=== PATIENT | female | born 1950 | race Caucasian/White ===

== ENCOUNTER 2017-10-08 05:02 | Observation (INO) ==
[2017-10-08] MEDS ORDERED: Naloxone 0.4 MG/ML INJ IVP PRN (12:43)
--- NOTE | 2017-10-08 12:43 | Internal Med History&Physical ---
Date of Encounter: 10/08/17 Time of Encounter: 12:39 Internal Medicine - H&P: HPI Admitted From: Home Plans for Post Hospital Care: Home History of present illness: Ms. Young is a 67 year old female with history of hypertension and chronic pancreatitis got transferred from [place] ER after finding new onset A. fib with RVR. Patient has intermittent palpitation for several years earlier it was once or twice in a year then progressed to monthly basis but since last month she has been getting palpitation more frequently. Last night she woke up with palpitation around 3:00 a.m. and felt very uneasy therefore went to [place] ER where A. fib with RVR was diagnosed and transfer to [facility]. Cardizem drip was started. Patient denies associated chest pain, headache, dizziness, nausea, vomiting. She also denies fever, chills, abdominal pain, urinary or bowel complaint. Past Med Surg Social Fam HX - Past Medical History Medical history: other - Social History Smoking Status: Never smoker Smokeless Tobacco Status: No Alcohol use: none Drug use: none Internal Medicine - H&P: Meds Olmesartan Medoxomil [Benicar] 40 mg PO DAILY 06/18/17 [History] cloNIDine HCl [CloNIDine HCl] 0.1 mg PO BID 06/18/17 [History] Docusate [Colace] 100 - 200 mg PO BID 10/08/17 [History] Ibuprofen [Motrin Ib] 200 mg PO DAILY PRN 10/08/17 [History] Psyllium Husk [Fiber] 5 cap PO DAILY 10/08/17 [History] amLODIPine [Norvasc] 5 mg PO DAILY 10/08/17 [History] 3 Allergy/AdvReac Type Severity Reaction Status Date / Time acetaminophen [From Percocet] Allergy Rash Verified 10/08/17 09:21 hydrocodone [From Vicodin] Allergy Hives Verified 10/08/17 09:21 Hydromorphone [From Dilaudid] Allergy Hives Verified 10/08/17 09:21 morphine Allergy Rash Verified 10/08/17 09:21 Oxycodone [From Percocet] Allergy Rash Verified 10/08/17 09:21 All Systems PM: A 10-system review of systems was performed and is negative for pertinent findings except as documented above in the HPI. - Constitutional Vitals: Temp Pulse Resp BP Pulse Ox 97.6 F 113 16 135/95 96 10/08/17 12:13 10/08/17 12:13 10/08/17 12:13 10/08/17 12:13 10/08/17 12:13 Exam: General appearance: No acute distress, A&O X 3 Head exam: Atraumatic Eye exam: EOMI, PERRLA ENT exam: Moist oral mucosa Neck nontender, supple Respiratory exam: Clear to auscultation bilaterally Cardiovascular exam: Irregular rhythm. Tachycardic, no systolic murmur Abdominal exam: Soft, nontender, nondistended, positive bowel sounds Extremities exam: No calf tenderness, no pedal edema Present: Skin-no rash, warm, dry, intact Neurological exam: Alert, awake, oriented 3, CN II-XII intact, no focal deficits. No facial droop. Normal speech. Motor 5 x 5 in all 4 extremities - Assessment and plan (1) Atrial fibrillation with rapid ventricular response Current Visit: No Status: Acute Assessment and plan: New onset. Patient is still tachycardic with A. fib but better controlled rate on Cardizem drip. Anticoagulation therapy was discussed with the patient. After discussing risk and benefit including bleeding patient decided for parenteral anticoagulation therapy while waiting for the coordinator of library services to discuss about oral anticoagulation treatment. Serial troponin, echocardiogram, telemetry bed, aspirin 324 mg 1 and then baby aspirin, fasting lipid profile. TSH, magnesium level also ordered. Consulted coordinator of library services. (2) Hypertension Current Visit: Yes Status: Chronic Assessment and plan: Continue home medicine except amlodipine as patient already on Cardizem drip. Close monitoring. Qualifiers: Hypertension type: essential hypertension Qualified Code(s): I10 - Essential (primary) hypertension (3) Chronic pancreatitis Current Visit: Yes Status: Chronic Assessment and plan: Stable. Continue monitor. Qualifiers: Pancreatitis type: biliary Qualified Code(s): K86.1 - Other chronic pancreatitis (4) DVT prophylaxis Current Visit: Yes Status: Acute Assessment and plan: Continue heparin drip - Time Spent With Patient Total time spent is greater than 50% in coordination of care (as documented) at patient's floor/unit and/or counseling patient: 25 - 35 minutes
[2017-10-08] MEDS ORDERED: Aspirin 325 MG TABLET PO ONE (12:52)
[2017-10-08] MEDS ORDERED: *HR* Heparin 5,000 UNIT/ML VIAL IVP ONE (12:59)
[2017-10-08] MEDS ORDERED: *HR* Heparin 5,000 UNIT/ML VIAL IVP PRN ×2 (12:59)
[2017-10-08] MEDS ORDERED: Heparin 25,000 UNIT/500 ML D5W 25,000 UNIT/500 ML BAG IVC SCH (13:00)
[2017-10-08 13:37] LABS: Hemoglobin 14.6 g/dL (11.5-15.4); Mean Corpuscular HGB Conc 34.8 g/dL (31.6-35.5); Mean Corpuscular Hemoglobin 30.6 pg (28.0-33.3); Mean Corpuscular Volume 88.1 fL (83.0-100.0); Mean Platelet Volume 10.6 fL (9.4-12.4); Platelet Count 220 K/mcL (140-400); Red Blood Count 4.77 M/mcL (3.82-4.97); Red Cell Distribution Width 12.7 % (11.5-14.5)
[2017-10-08 13:42] LABS: INR 0.9; Prothrombin Time 9.7 Seconds (9.4-12.1)
[2017-10-08 13:46] LABS: Activated Partial Thrombo Time 28.7 Seconds (26.0-36.0)
--- NOTE | 2017-10-08 13:56 | Cardiology Consult Note ---
Addendum entered and electronically signed by Alfonso Amanda CNP 10/08/17 14:21: Given pt's chronic pancreatitis, appreciate recommendations from primar team on if safe for chronic anticoagulation. On Home clonidine 0.1mg BID. Will decrease to daily in attempts to wean off and prevent rebound hypertension. Original Note: <Alfonso Amanda - Last Filed: 10/08/17 13:50> Date of Encounter: 10/08/17 Time of Encounter: 13:50 Assessment and Plan (1) Atrial fibrillation with rapid ventricular response Current Visit: Yes Status: Acute New diagnosis of A-Fib RVR, reports increasing intermittent palpitations in the past month, but woke up with acute onset of palpitations at 3AM prompting ED evaluation. Found to be in A-Fib RVR. K 3.4--replace. TSH 4.644. Check Mag. Troponin negative x 2. Currently on Cardizem gtt at 12.5mg/hr. Discussed with RN, increase to 15mg/hr. HR fluctuating up to 150s still. Echo once better rate controlled to evaluate structure and function. [id number] 3 (Age, HTN, Female). High CVA risk. Discussed Coumadin vs. NOACs. She is agreeable, but would like to think about the options. Heparin gtt for now. ST depressions on EKG, may be from RVR. Obtain echo and will determine if ischemic evaluation is warranted. Will further discuss with Dr. Hicks. Cardizem gtt was started overnight at [place] and still significantly tachycardic. Pt appears stable and is not in any distress at bedside. Continue to follow. (2) Hypertension Current Visit: Yes Status: Chronic BP stable. Will hold home Clonidine and decrease Losartan to allow BP room for AV mahogany blockers. Qualifiers: Hypertension type: essential hypertension Qualified Code(s): I10 - Essential (primary) hypertension Discussion w patient/family: The assessment and plan as outlined above was discussed with the patient and/or family members who expressed understanding and agreement. All questions were answered. Thank you for involving us in the care of your patient. Please call with any questions. I will discuss all the above with Dr. Hicks and make changes as necessary. History of Present Illness Consult date: 10/08/17 Requesting physician: Beata Rivera Consult reason: A-Fib RVR Chief complaint: palpitations History of present illness: Ms. Young is a 67 year old female with PMH of HTN and chronic pancreatitis, transferred from [place] ER for A-Fib RVR, new diagnosis. Patient reports occasional/intermittent palpitations for several years, typically once or twice a year. Palpitations became more frequent in the past month, then last night she woke up with palpitations around 3AM prompting ED evaluation where she was found to be in A-fib with RVR. Pt denies chest pain or dyspnea. Currently on cardizem gtt at 12.5mg/hr. Heparin gtt being started. No prior cardiac hx. HR at bedside fluctuating, up to 150s. Past Med Surg Social Fam HX - Past Medical History Medical history: hypertension, other (chronic pancreatitis) - Social History Smoking Status: Never smoker Smokeless Tobacco Status: No Alcohol use: none Drug use: none Medications and Allergies Olmesartan Medoxomil [Benicar] 40 mg PO DAILY 06/18/17 [History] cloNIDine HCl [CloNIDine HCl] 0.1 mg PO BID 06/18/17 [History] Docusate [Colace] 100 - 200 mg PO BID 10/08/17 [History] Ibuprofen [Motrin Ib] 200 mg PO DAILY PRN 10/08/17 [History] Psyllium Husk [Fiber] 5 cap PO DAILY 10/08/17 [History] amLODIPine [Norvasc] 5 mg PO DAILY 10/08/17 [History] 3 Allergy/AdvReac Type Severity Reaction Status Date / Time acetaminophen [From Percocet] Allergy Rash Verified 10/08/17 09:21 hydrocodone [From Vicodin] Allergy Hives Verified 10/08/17 09:21 Hydromorphone [From Dilaudid] Allergy Hives Verified 10/08/17 09:21 morphine Allergy Rash Verified 10/08/17 09:21 Oxycodone [From Percocet] Allergy Rash Verified 10/08/17 09:21 All Systems Review: The remainder of the systems were reviewed and are negative - Cardiovascular Cardiovascular: as per HPI, palpitations, rapid heart rate Physical Examination Vital Signs, Last 4 Hours Temp Pulse Resp BP Pulse Ox 10/08/17 12:13 97.6 F 113 16 135/95 96 Vital Signs Temp Pulse Resp BP Pulse Ox 10/08/17 12:13 97.6 F 113 16 135/95 96 10/08/17 07:25 97.8 F 88 16 117/88 98 Intake and Output 10/07/17 10/08/17 10/08/17 23:59 07:59 15:59 Other: Weight 83.461 kg Patient Weight 10/08/17 23:59 Weight 83.461 kg General: Conversant, No Apparent Distress HEENT: Atraumatic, Normocephaly, Mucus Membranes Moist Neck: No JVD, Normal carotid pulses Cardiac: Other (irregularly irregular) Lungs: Normal Breath Sounds, No Wheeze, Rales, Rhonchi Neuro: Alert and responsive, No focal deficits noted Abdomen: Soft, Non-Tender Skin: No rashes noted on visualized skin Musculoskeletal: No Chest Wall Tenderness Extremities: No Clubbing, No Cyanosis, No Edema, Normal Pulses Results 10/08/17 13:07 Lab Results 10/08/17 10/08/17 10/08/17 13:07 13:07 13:07 WBC 7.1 Hgb 14.6 Hct 42.0 Plt Count 220 INR 0.9 APTT 28.7 Troponin I < 0.03 Short CBC 10/08/17 Range/Units 13:07 WBC 7.1 (4.3-11.1) K/mcL Hgb 14.6 (11.5-15.4) g/dL Hct 42.0 (35.3-44.9) % Plt Count 220 (140-400) K/mcL Cardiac Enzymes 10/08/17 Range/Units 13:07 Troponin I < 0.03 (< 0.04) ng/mL Active Medications Aspirin (Aspirin) 81 mg PO DAILY [facility] Stop: 04/10/18 09:01 Docusate Sodium (Colace) 100 - 200 mg PO BID [facility] PRN Reason: Protocol Stop: 04/09/18 21:01 Heparin Sodium (Porcine) (Heparin) 4,000 unit IVP Q6HR PRN PRN Reason: SEE COMMENTS Stop: 04/09/18 13:00 Heparin Sodium (Porcine) (Heparin) 2,000 unit IVP Q6H PRN PRN Reason: SEE COMMENTS Stop: 04/09/18 13:00 Heparin Sodium/Dextrose (Heparin 25,000 Unit/500 Ml D5w) 25,000 unit in 500 mls @ 20.031 mls/hr IVC .Q24H [facility]; 12 UNIT/KG/HR PRN Reason: Protocol Stop: 04/09/18 13:01 Diltiazem HCl 125 mg/ Sodium (Chloride) 125 mls @ 12.5 mls/hr IVC .Q10H [facility]; 12.5 MG/HR PRN Reason: Protocol Stop: 04/09/18 13:31 Last Admin: 10/08/17 13:55 Dose: 12.5 mg/hr, 12.5 mls/hr Losartan Potassium (Cozaar) 50 mg PO DAILY [facility] Stop: 04/11/18 09:01 Naloxone HCl (Narcan) 0.4 mg IVP Q2MIN PRN PRN Reason: SEE COMMENTS Stop: 04/09/18 12:44 Non-Formulary Medication (Psyllium Husk [Fiber]) 5 cap PO DAILY [facility] Stop: 04/10/18 09:01 - EKG Interpretation EKG results cardiology: personally reviewed (A-Fib RVR HR 152) Consult Discharge Plan - Plan Referrals: Jude Fajardo MD [Primary Care Provider] - <Alessia Hicks - Last Filed: 10/08/17 15:21> Date of Encounter: 10/08/17 - Attending Attestation I have personally performed a face to face evaluation on this patient. I have reviewed and agree with the care plan. History and Exam by me shows: 67 YOF with new onset Afib and no chest pain very active on regular basis. Afib RVR at 150 now, will start BB and possible CAMELIA/CVE in am if failed to rate control. ChadsVasc 3 , d/w patient r/b/a of AC vs ASA for stroke risk reduction and she agrees to proceed. Will await clearance from Hospitalist if patient safe to start AC long term care social worker with h/o Pancreatitis. Assessment and Plan Discussion w patient/family: The assessment and plan as outlined above was discussed with the patient and/or family members who expressed understanding and agreement. All questions were answered. Thank you for involving us in the care of your patient. Please call with any questions. History of Present Illness History of present illness: Ms. Young is a 67 year old female All Systems Review: The remainder of the systems were reviewed and are negative Physical Examination Vital Signs, Last 4 Hours Temp Pulse Resp BP Pulse Ox 10/08/17 12:13 97.6 F 113 16 135/95 96 Results 10/08/17 13:07 10/08/17 13:07 Lab Results 10/08/17 10/08/17 10/08/17 13:07 13:07 13:07 WBC Hgb Hct Plt Count INR 0.9 APTT 28.7 Sodium 139 Potassium 3.8 Chloride 108 H Carbon Dioxide 22 L BUN 8 Creatinine 0.67 Glucose 92 Calcium 9.2 Magnesium 2.1 Total Bilirubin 0.7 AST 29 ALT 30 Alkaline Phosphatase 146 H Troponin I < 0.03 10/08/17 13:07 WBC 7.1 Hgb 14.6 Hct 42.0 Plt Count 220 INR APTT Sodium Potassium Chloride Carbon Dioxide BUN Creatinine Glucose Calcium Magnesium Total Bilirubin AST ALT Alkaline Phosphatase Troponin I
[2017-10-08 13:59] LABS: Alanine Aminotransferase 30 Units/L (7-52); Albumin/Globulin Ratio 1.3 (1.1-2.2); Alkaline Phosphatase 146 Units/L (34-104); Aspartate Amino Transferase 29 Units/L (13-39); BUN/Creatinine Ratio 12 (6-26); Bilirubin,Total 0.7 mg/dL (0.3-1.0); Blood Urea Nitrogen 8 mg/dL (8-23); Calcium 9.2 mg/dL (8.6-10.3); Carbon Dioxide 22 mEq/L (23-29); Chloride 108 mEq/L (98-107); Globulin 3.1 g/dL (2.4-3.5); Glucose 92 mg/dL (70-105); Magnesium 2.1 mg/dL (1.6-2.6); Osmolality,Calculated 286 (280-300); Potassium 3.8 mEq/L (3.5-5.1); Sodium 139 mEq/L (136-145); Total Protein 7.1 g/dL (6.4-8.9); eGFR For African Americans > 60 (> 60); eGFR For Non-African Americans > 60 (> 60)
[2017-10-08] MEDS ORDERED: *HR* Metoprolol 5 MG/5 ML VIAL IVP ONE ×2 (14:03→14:07)
[2017-10-08] MEDS ORDERED: cloNIDine HCl 0.1 MG TABLET PO ONE (14:45)
[2017-10-08] MEDS ORDERED: 0.9 % Sodium Chloride 1,000 ML ONE (17:01)
[2017-10-08] MEDS ORDERED: cloNIDine HCl 0.1 MG TABLET PO SCH ×2 (21:00)
[2017-10-09 01:21] LABS: Troponin I < 0.03 ng/mL (< 0.04)
[2017-10-09 07:17] LABS: Chol/HDL Ratio 2.8 (0-4.9); Cholesterol 208 mg/dL (< 200); HDL Cholesterol 74 mg/dL (40-59); LDL Cholesterol,Calculated 121 mg/dL (0-99); Triglycerides 63 mg/dL (< 150)
[2017-10-09] MEDS ORDERED: Aspirin 81 MG TAB.CHEW PO SCH (09:00)
[2017-10-09] MEDS ORDERED: Psyllium 1 PACKET POWD.PACK PO SCH (09:00)
[2017-10-09] MEDS ORDERED: Diltiazem CD (24hr) 120 MG CAPSULE PO SCH (10:00)
--- NOTE | 2017-10-09 10:11 | Cardiology Progress Note ---
Date of Encounter: 10/09/17 Time of Encounter: 10:09 Assessment and Plan (1) Atrial fibrillation with rapid ventricular response Current Visit: Yes Status: Inactive New diagnosis of A-Fib RVR, reports increasing intermittent palpitations in the past month. K 3.8, TSH 4.644, Mag 2.1. Troponin negative x 3. Converted to SR overnight. HR currently 50s-60s at bedside, off cardizem gtt. Will start low dose PO Cardizem CD 120mg daily. [id number] 3 (Age, HTN, Female). High CVA risk. Discussed Coumadin vs. NOACs. She is agreeable. Currently on heparin gtt. Discussed with hospitalist regarding pt's chronic pancreatitis and they do not feel it is a contraindication for anticoagulation. Barros check on Eliquis is $50 /month. Pt states this is affordable. Stop heparin gtt, start Eliquis 5mg BID. TTE LVEF 50-55%. Indeterminate diastolic function. Normal right ventricular structure and function. Mild mitral regurgitation. Mild-moderate tricuspid regurgitation. No pulmonary hypertension. Cardiology signing off. Reconsult PRN. Will coordinate outpt follow-up in 2-3 weeks with EP for new A-Fib. Consider outpt stress test. Okay to d/c home later today. (2) Hypertension Current Visit: Yes Status: Chronic BP has remained stable. Will resume home Clonidine dose. Decreased Losartan to 50mg daily since starting Cardizem CD 120mg. Qualifiers: Hypertension type: essential hypertension Qualified Code(s): I10 - Essential (primary) hypertension Discussion w patient/family: The assessment and plan as outlined above was discussed with the patient and/or family members who expressed understanding and agreement. All questions were answered. Thank you for involving us in the care of your patient. Please call with any questions. I will discuss all the above with Dr. Hicks and make changes as necessary. Subjective Principal diagnosis: PAF Interval history: Pt has converted to SR, HR 50s-60s at bedside. Pt reports feeling much better, denies acute complaints. Denies chest pain, palpitations or dyspnea. TTE resulted--LVEF 50-55%. Indeterminate diastolic function. Normal right ventricular structure and function. Mild mitral regurgitation. Mild-moderate tricuspid regurgitation. No pulmonary hypertension. Objective Vital Signs, Last 4 Hours Temp Pulse Resp BP Pulse Ox 10/09/17 07:58 98.1 F 56 16 140/86 96 Vital Signs Temp Pulse Resp BP Pulse Ox 10/09/17 07:58 98.1 F 56 16 140/86 96 10/09/17 03:26 97.9 F 90 14 137/78 94 10/08/17 21:48 97.8 F 93 16 140/81 94 10/08/17 17:28 99 16 137/79 98 10/08/17 12:13 97.6 F 113 16 135/95 96 Intake and Output 10/08/17 10/09/17 10/09/17 23:59 07:59 15:59 Intake Total 125 / 125 0 / 0 Balance 125 / 125 0 / 0 Intake: IV Fluids 125 / 125 0 / 0 Cardizem 125 MG In 0.9 % Sodium 125 / 125 0 / 0 Chloride 100 ML @ 12.5 MG/HR 12.5 mls/hr IVC .Q10H [facility] Rx#: [id number] Heparin 25,000 UNIT/500 ML D5W 0 / 0 25,000 unit In 500 ml @ 12 UNIT /KG/HR 20.031 mls/hr IVC .Q24H [facility] Rx#:[id number] Other: Meal NPO General: Conversant, No Apparent Distress HEENT: Atraumatic, Normocephaly, Mucus Membranes Moist Neck: No JVD, Normal carotid pulses Cardiac: Reg Rate and Rhythm, Normal S1 and S2, No Murmur Lungs: Normal Breath Sounds, No Wheeze, Rales, Rhonchi Neuro: Alert and responsive, No focal deficits noted Abdomen: Soft, Non-Tender Skin: No rashes noted on visualized skin Musculoskeletal: No Chest Wall Tenderness Extremities: No Clubbing, No Cyanosis, No Edema, Normal Pulses Results 10/08/17 13:07 10/08/17 13:07 Lab Results 10/08/17 10/08/17 10/08/17 13:07 13:07 13:07 WBC Hgb Hct Plt Count INR 0.9 APTT 28.7 Sodium 139 Potassium 3.8 Chloride 108 H Carbon Dioxide 22 L BUN 8 Creatinine 0.67 Glucose 92 Calcium 9.2 Magnesium 2.1 Total Bilirubin 0.7 AST 29 ALT 30 Alkaline Phosphatase 146 H Troponin I < 0.03 05/15/18 05/15/18 05/15/18 13:07 19:43 23:20 WBC 7.1 Hgb 14.6 Hct 42.0 Plt Count 220 INR APTT 99.1 H D Sodium Potassium Chloride Carbon Dioxide BUN Creatinine Glucose Calcium Magnesium Total Bilirubin AST ALT Alkaline Phosphatase Troponin I < 0.03 10/09/17 10/09/17 00:45 06:15 WBC Hgb Hct Plt Count INR APTT 79.8 H Sodium Potassium Chloride Carbon Dioxide BUN Creatinine Glucose Calcium Magnesium Total Bilirubin AST ALT Alkaline Phosphatase Troponin I < 0.03 Short CBC 10/08/17 Range/Units 13:07 WBC 7.1 (4.3-11.1) K/mcL Hgb 14.6 (11.5-15.4) g/dL Hct 42.0 (35.3-44.9) % Plt Count 220 (140-400) K/mcL BMP 10/08/17 Range/Units 13:07 Sodium 139 (136-145) mEq/L Potassium 3.8 (3.5-5.1) mEq/L Chloride 108 H (98-107) mEq/L Carbon Dioxide 22 L (23-29) mEq/L BUN 8 (8-23) mg/dL Creatinine 0.67 (0.60-1.20) mg/dL Glucose 92 (70-105) mg/dL Calcium 9.2 (8.6-10.3) mg/dL Cardiac Enzymes 10/09/17 10/08/17 10/08/17 Range/Units 00:45 19:43 13:07 Troponin I < 0.03 < 0.03 < 0.03 (< 0.04) ng/mL Liver Function 10/08/17 Range/Units 13:07 Total Bilirubin 0.7 (0.3-1.0) mg/dL AST 29 (13-39) Units/L ALT 30 (7-52) Units/L Alkaline Phosphatase 146 H (34-104) Units/L Albumin 4.0 (3.5-5.7) g/dL Impressions Echocardiogram 10/08/17 12:47 Impressions: LVEF 50-55%. Indeterminate diastolic function. Normal right ventricular structure and function. Mild mitral regurgitation. Mild-moderate tricuspid regurgitation. No pulmonary hypertension. Left Ventricular Wall Motion: Rest Echo Findings All wall segments showed normal motion. Findings: Study Quality * Technically adequate exam. ECG Findings * Atrial fibrillation. Left Ventricle * LVEF 50-55%. * Normal LV chamber size and wall thickness. * Indeterminate diastolic function. Right Ventricle * Normal right ventricular structure and function. Left Atrium * Moderately dilated left atrium. Right Atrium * Normal right atrial size. Aortic Valve * No aortic regurgitation. * Trileaflet aortic valve. * No aortic stenosis. Mitral Valve * Normal mitral valve structure. * No mitral stenosis. * Mild mitral regurgitation. Tricuspid Valve * Normal tricuspid valve structure. * Mild-moderate tricuspid regurgitation. * Estimated RA pressure is 3 mmHg. * Estimated RVSP is 29 mmHg. * No pulmonary hypertension. Pulmonic Valve * Pulmonic valve is not well visualized. * No pulmonic stenosis. * No pulmonic regurgitation. Pulmonary Artery * Pulmonary artery not well visualized. Aorta * Normally sized aortic root. Pericardium * There is no pericardial effusion present. Interatrial Septum * No evidence of PFO by color Doppler. IVC * Normal IVC dimensions and inspiratory collapse. Active Medications Aspirin (Aspirin) 81 mg PO DAILY [facility] Stop: 04/10/18 09:01 Clonidine HCl (Clonidine Hcl) 0.05 mg PO BID [facility] Stop: 04/09/18 21:01 Last Admin: 10/08/17 21:46 Dose: 0.05 mg Diltiazem HCl (Cardizem Cd) 120 mg PO DAILY [facility] Stop: 04/10/18 10:01 Docusate Sodium (Colace) 100 mg PO BID [facility] PRN Reason: Protocol Stop: 04/09/18 21:01 Last Admin: 10/08/17 21:46 Dose: 100 mg Heparin Sodium (Porcine) (Heparin) 4,000 unit IVP Q6HR PRN PRN Reason: SEE COMMENTS Stop: 04/09/18 13:00 Heparin Sodium (Porcine) (Heparin) 2,000 unit IVP Q6H PRN PRN Reason: SEE COMMENTS Stop: 04/09/18 13:00 Heparin Sodium/Dextrose (Heparin 25,000 Unit/500 Ml D5w) 25,000 unit in 500 mls @ 20.031 mls/hr IVC .Q24H [facility]; 12 UNIT/KG/HR PRN Reason: Protocol Stop: 04/09/18 13:01 Last Titration: 10/09/17 00:04 Dose: 11.98 unit/kg/hr, 20 mls/hr Losartan Potassium (Cozaar) 50 mg PO DAILY [facility] Stop: 04/11/18 09:01 Naloxone HCl (Narcan) 0.4 mg IVP Q2MIN PRN PRN Reason: SEE COMMENTS Stop: 04/09/18 12:44 Psyllium Hydrophilic Mucilloid (Metamucil Fiber Singles Packet) 1 packet PO DAILY [facility] Stop: 04/10/18 09:01 - Imaging and Cardiology Echo: report reviewed - EKG Interpretation EKG results cardiology: other (12 hr tele AVG HR 80, now SR) Consult Discharge Plan - Plan Referrals: Jude Fajardo MD [Primary Care Provider] -
[2017-10-09] MEDS ORDERED: Apixaban 5 MG TABLET PO SCH (10:45)
--- NOTE | 2017-10-09 15:42 | Discharge Summary ---
- NOTES TO OUTPATIENT PROVIDER Notes to Outpatient Provider: Patient is a new onset of atrial fibrillation with RVR-initially started on Cardizem drip and then converted to sinus rhythm. Now she is to be discharged on anticoagulation with Eliquis. Started on 5 mg and prescription given for 5 mg twice a day. Also started on low-dose Cardizem 120 mg standard release. Her chadsVASC score is 3. Cardiology will also like to follow up with electrophysiology in 2-3 weeks and consider outpatient stress test Date of Encounter: 10/09/17 Time of Encounter: 15:39 - Discharge Diagnosis (1) Atrial fibrillation with rapid ventricular response Priority: Primary Status: Inactive (2) Hypertension Priority: Secondary Status: Chronic Qualifiers: Hypertension type: essential hypertension Qualified Code(s): I10 - Essential (primary) hypertension (3) Chronic pancreatitis Priority: Secondary Status: Chronic Qualifiers: Pancreatitis type: biliary Qualified Code(s): K86.1 - Other chronic pancreatitis (4) DVT prophylaxis Priority: Secondary Status: Acute Hospital course: Ms. Young is a 67 year old female who was admitted with new onset of atrial fibrillation with rapid ventricular rate and started on Cardizem drip initially and then converted over to by mouth Cardizem CD 120 mg daily. She has a chads score of at least 3+ hands and evaluation has been initiated with Loc barker of personally spoken to her primary care physician who will be following this up as an outpatient. Her ejection fraction was 50-55% on transthoracic echo. She converted to sinus rhythm while in the hospital and is symptom-free at this point. He will follow-up in 2-3 weeks as an outpatient with electrophysiology. Cardiology would also like to consider outpatient stress test Discharge discussed with: patient, nurse - Time Spent with Patient Total time spent providing and/or coordinating discharge services: Greater than 30 minutes - Discharge Medications Prescriptions: Apixaban [Eliquis] 5 mg PO BID 30 Days #60 tablet Diltiazem CD (24hr) [Cardizem CD] 120 mg PO DAILY #30 cap.er.24h Home Medications: Olmesartan Medoxomil [Benicar] 40 mg PO DAILY 06/18/17 [History] Docusate [Colace] 100 - 200 mg PO BID 10/08/17 [History] Psyllium Husk [Fiber] 5 cap PO DAILY 10/08/17 [History] Apixaban [Eliquis] 5 mg PO BID 30 Days #60 tablet 10/09/17 [Rx] Aspirin 81 mg PO DAILY tab.chew 10/09/17 [Rx] Diltiazem CD (24hr) [Cardizem CD] 120 mg PO DAILY #30 cap.er.24h 10/09/17 [Rx] cloNIDine HCl [CloNIDine HCl] 0.1 mg PO BID tablet 10/09/17 [Rx] Allergies/Adverse Reactions: 3 Allergy/AdvReac Type Severity Reaction Status Date / Time acetaminophen [From Percocet] Allergy Rash Verified 10/08/17 09:21 hydrocodone [From Vicodin] Allergy Hives Verified 10/08/17 09:21 Hydromorphone [From Dilaudid] Allergy Hives Verified 10/08/17 09:21 morphine Allergy Rash Verified 10/08/17 09:21 Oxycodone [From Percocet] Allergy Rash Verified 10/08/17 09:21 Date of admission: 10/08/17 06:30 Primary care physician: Jude Fajardo MD Consults: 10/08/17 12:46 Consult to Cardiology [CONS] Routine Comment: Consulting Provider: Cardiology Mireya Reason for Consult: A. fib with RVR Call Completed: Yes - Constitutional Vitals: Temp Pulse Resp BP Pulse Ox 98.0 F 64 16 137/77 95 10/09/17 12:22 10/09/17 12:22 10/09/17 12:22 10/09/17 12:22 10/09/17 12:22 Exam: GENERAL: Alert, no distress, cooperative EYES: PERRLA, EOMI EARS: External ears normal, canals clear OROPHARYNX: Lips, mucosa, and tongue normal. Teeth and gums normal. Oropharynx normal. NECK: No jugulovenous distention, No carotid bruits, Carotid pulse normal contour, Supple LUNGS: Lungs clear to auscultation, Good diaphragmatic excursion CARDIAC: Normal S1 and S2; no rubs, murmurs, or gallops ABDOMEN: Abdomen soft, non-tender, BS normal, No masses or organomegaly EXTREMITIES: Extremities normal, no deformities, edema, clubbing or skin discoloration. Good capillary refill., No ulcers NEURO: Gait normal. Reflexes normal and symmetric. Sensation grossly intact, Cranial nerves II-XII intact PULSES: 2+ radial, 2+ carotid Rest of the exam is non contributory - Patient Status Disposition: Home, Self-Care Condition: Good Functional capacity at discharge: independent ambulation - Discharge Instructions Follow Up With: Jude Fajardo MD [Primary Care Provider] - - Diet and Activity Activity: increase activity as tolerated Diet: regular diet
[2017-10-09 16:09] VITALS: BP 160/83
[2017-10-09] MEDS ORDERED: cloNIDine HCl 0.1 MG TABLET PO SCH (21:00)
== END 2017-10-09 16:54 | disposition home or self-care (01) ==
LOC: 2SOUTHHOLD → SUATTDRO 06:30
PROVIDERS: ADMIT General Practice; ATTEND Internal Medicine